=== PATIENT | male | born 1950 ===

== ENCOUNTER 2017-01-16 14:43 | Emergency (ER) | payer MEDICARE, OTHER ==
[2017-01-16 14:47] VITALS: BP 168/91; PULSE 56; RESP 20; TEMP 98.4; O2SAT 99
[2017-01-16 14:48] VITALS: BMI 25.4
[2017-01-16 16:07] LABS: BASO # 0.1 K/uL (0.0-0.2); BASO % 0.9 % (0.0-2.0); EOS # 0.9 K/uL (0.0-0.7); EOS % 13.1 % (0.0-4.0); HEMATOCRIT 42.9 % (35.0-51.0); LYMPH # 1.9 K/uL (1.0-4.3); LYMPH % 27.8 % (20.0-40.0); MEAN CELL VOLUME 90.2 fl (80.0-94.0); MEAN CORPUSCULAR HEMOGLOBIN 31.3 pg (27.0-31.0); MEAN CORPUSCULAR HGB CONC 34.8 g/dL (33.0-37.0); MEAN PLATELET VOLUME 8.6 fl (7.2-11.7); MONO # 0.6 K/uL (0.0-0.8); MONO % 8.4 % (0.0-10.0); NEUT # 3.4 K/uL (1.8-7.0); NEUT % 49.8 % (50.0-75.0); NRBC % 0.1 % (0.0-0.0); RED CELL DISTRIBUTION WIDTH 13.4 % (11.5-14.5); WHITE BLOOD COUNT 6.8 K/uL (4.8-10.8)
[2017-01-16 16:11] LABS: RBC URINE 2 /hpf (0-3); URINE BILIRUBIN NEGATIVE (NEGATIVE); URINE BLOOD NEGATIVE (NEGATIVE); URINE COLOR STRAW (YELLOW); URINE GLUCOSE (UA) NEG (Normal); URINE KETONE NEGATIVE (NEGATIVE); URINE LEUKOCYTE ESTERASE NEG Leu/uL (Negative); URINE PROTEIN NEGATIVE (NEGATIVE); URINE UROBILINOGEN 0.2-1.0 mg/dL (0.2-1.0); WBC URINE 1 /hpf (0-5)
[2017-01-16 16:30] LABS: ALB/GLOB RATIO 1.1 (1.0-2.1); ALCOHOL SERUM < 10 mg/dl (0-10); ALKALINE PHOSPHATASE 94 U/L (38-126); ALT/SGPT 40 U/L (21-72); AST/SGOT 31 U/L (17-59); BILIRUBIN,TOTAL 0.3 mg/dl (0.2-1.3); BLOOD UREA NITROGEN 11 mg/dl (9-20); CALCIUM 9.5 mg/dL (8.4-10.2); CARBON DIOXIDE 29 mmol/L (22-30); CHLORIDE 99 mmol/L (98-107); GFR AFRICAN-AMERICAN > 60; GLUCOSE,RANDOM 120 mg/dL (75-110); POTASSIUM 4.2 MMOL/L (3.6-5.0); SODIUM 140 mmol/l (132-148); TOTAL PROTEIN 8.5 G/DL (6.3-8.2)
--- NOTE | 2017-01-16 16:46 | ED PDOC ---
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 Patient states for the past 3 months , he has had intermittent headache which he attributes to a fall sustained 3 months ago. He denies any loss of consciousness at the time of fall. Patent states he had his back evaluated but not his head. Patient was visiting his PCP Dr. Douglas earlier today, who advised him to come to the ED for evaluation; patient reports suicidal ideation but denies any plan. He denies any chest pain , fevers, abdominal pain, visual changes, sudden onset headaches. He offers no medical complaints. Past Medical History Reviewed: Historical Data, Nursing Documentation, Vital Signs Vital Signs: Last Vital Signs Temp 98.4 F 01/16/17 14:46 Pulse 56 L 01/16/17 14:46 Resp 20 01/16/17 14:46 BP 168/91 H 01/16/17 14:46 Pulse Ox 99 01/16/17 14:46 - Medical History PMH: Cardia Arrhythmia (TACHYCARDIA), HTN, Hypercholesterolemia, TIA (NOVEMBER 2014) - Surgical History Surgical History: No Surg Hx - Family History Family History: States: No Known Family Hx - Home Medications Home Medications: Ambulatory Orders Medication Instructions Recorded Acetaminophen with Codeine 1 tab PO Q4H PRN 09/29/16 [Tylenol with Codeine #3 Tablet] Aspirin [Ecotrin] 1 tab PO DAILY 09/29/16 Atorvastatin [Lipitor] 1 tab PO HS 09/29/16 Cephalexin [Keflex] 1 cap PO QID 09/29/16 Donepezil HCl [Aricept] 1 tab PO HS 09/29/16 hydroCHLOROthiazide [Hydrodiuril] 1 tab PO DAILY 09/29/16 Metoclopramide [Reglan] 10 mg PO Q8 PRN #15 tab 01/16/17 - Allergies Allergies/Adverse Reactions: Allergies Allergy/AdvReac Type Severity Reaction Status Date / Time No Known Allergies Allergy Verified 09/26/16 10:44 Review of Systems ROS Statement: Except As Marked, All Systems Reviewed And Found Negative Constitutional: Negative for: Fever Eyes: Negative for: Vision Change Cardiovascular: Negative for: Chest Pain Gastrointestinal: Negative for: Abdominal Pain Neurological: Negative for: Headache Psych: Positive for: Suicidal ideation Physical Exam - Reviewed Nursing Documentation Reviewed: Yes Vital Signs Reviewed: Yes - Physical Exam Appears: Positive for: Non-toxic Head Exam: Positive for: ATRAUMATIC, NORMAL INSPECTION, NORMOCEPHALIC Skin: Positive for: Warm, Dry Eye Exam: Positive for: Normal appearance ENT: Positive for: Normal ENT Inspection Neck: Positive for: Supple Cardiovascular/Chest: Positive for: Regular Rate, Rhythm Respiratory: Positive for: Normal Breath Sounds. Negative for: Respiratory Distress Gastrointestinal/Abdominal: Positive for: Soft. Negative for: Tenderness Back: Positive for: Normal Inspection Extremity: Positive for: Normal ROM Neurologic/Psych: Positive for: Alert, Oriented, Mood/Affect (calm, cooperative) . Negative for: Motor/Sensory Deficits, Aphasia, Facial Droop - Laboratory Results Result Diagrams: 01/16/17 15:55 01/16/17 15:55 - ECG O2 Sat by Pulse Oximetry: 99 (RA) Pulse Ox Interpretation: Normal - Progress ED Course And Treament: CT head w/o contrast: no ICH Pt. evaluated by crisis and cleared pt. for discharge. Re-evaluation Time: 19:00 (Pt. reports no headache. Denies SI/HI. ) Medical Decision Making Medical Decision Making: Time: 1531 Impression: Crisis evaluation Plan: -- CT Head -- EKG -- Crisis evaluation Reassess Time: 1755 Patient seen and evaluated by crisis team. Patient stable for d/c home as stated b Dr. Issa. Patient given instructions to follow up as an outpatient at the mental health clinic. Scribe Attestation: Documented by Sherri Power acting as a scribe for EVA Gaffney Provider Attestation: All medical record entries made by the Scribe were at my direction and personally dictated by me. I have reviewed the chart and agree that the record accurately reflects my personal performance of the history, physical exam, medical decision making, and the department course for this patient. I have also personally directed, reviewed, and agree with the discharge instructions and disposition. Disposition - Clinical Impression Clinical Impression: Headache, Depression - Patient ED Disposition Is Patient to be Admitted: No Counseled Patient/Family Regarding: Studies Performed, Diagnosis, Need For Followup - Disposition Disposition: Routine/Home Disposition Time: 17:56 Condition: IMPROVED Prescriptions: Metoclopramide [Reglan] 10 mg PO Q8 PRN #15 tab PRN Reason: Headache Instructions: Depression (ED), Acute Headache (ED) Forms: [employer] (Cuban) Print Language: SLOVENIAN
--- NOTE | 2017-01-16 17:06 | CT ---
PROCEDURE: CT scan of the brain dated 01/16/2017 HISTORY: The tip headache. COMPARISON: No prior study available comparison TECHNIQUE: Axial computed tomography images were obtained through the head/brain without intravenous contrast. Radiation dose: Total exam DLP = 840.09 mGy-cm. This CT exam was performed using one or more of the following dose reduction techniques: Automated exposure control, adjustment of the mA and/or kV according to patient size, and/or use of iterative reconstruction technique. FINDINGS: HEMORRHAGE: No acute parenchymal, subarachnoid or extra-axial hemorrhage. BRAIN: Mild moderate move chronic periventricular white matter ischemic changes seen extending peripherally into the deep and subcortical white matter both cerebral hemispheres Mild generalized volume loss VENTRICLES: No obstructive hydrocephalus CALVARIUM: Unremarkable. PARANASAL SINUSES: Unremarkable as visualized. No significant inflammatory changes. MASTOID AIR CELLS: There is sclerosis and under - pneumatization of the right mastoid air complex which is also subtotally opacified OTHER FINDINGS: Changes of bilateral cataract surgery IMPRESSION: No acute intracranial hemorrhage. Mild moderate chronic white matter ischemic changes. Sclerosis and under - pneumatization of the right mastoid air complex which is also subtotally opacified
--- NOTE | 2017-01-17 06:35 | CARD ---
APPROVED REPORT EKG Measurement Heart [id number] VT 140P-4 [id number] <Conclusion> Sinus bradycardia Right bundle branch block Left anterior fascicular block Bifascicular block Voltage criteria for left ventricular hypertrophy Cannot rule out Septal infarct, age undetermined Abnormal ECG
== END 2017-01-16 19:07 | disposition home or self-care (01) ==
LOC: H.ER 14:43
DX: R51 Headache (principal); F32.9 Major depressive disorder, single episode, unspecified; E78.00 Pure hypercholesterolemia, unspecified; I11.9 Hypertensive heart disease without heart failure; I51.7 Cardiomegaly; Z79.82 Long term (current) use of aspirin; Z86.73 Personal history of transient ischemic attack (TIA), and cerebral infarction without residual deficits
CPT/HCPCS: 70450; 80053; 81003; 85025; 93005; 99283; G0480

== ENCOUNTER 2017-03-05 08:19 | Day surgery (SDC) | payer MEDICARE ==
[2017-03-05] MEDS ORDERED: Lidocaine 2% MPF (5 ml) Inj ONE ×2 (08:40→11:10)
[2017-03-05] MEDS ORDERED: Propofol 10 mg/ml Inj (20 ML) ONE ×2 (08:40→11:09)
[2017-03-05] MEDS ORDERED: Lactated Ringer's 1,000 ML IV ONE (08:44)
[2017-03-05 09:01] VITALS: TEMP 96.9
[2017-03-05 11:57] VITALS: BP 132/79; PULSE 89; RESP 18; O2SAT 100
== END 2017-03-05 11:58 | disposition home or self-care (01) ==
LOC: H.ENDO 08:19
PROVIDERS: ATTEND Internal Medicine Gastroenterology
DX: Z12.11 Encounter for screening for malignant neoplasm of colon (principal); F41.9 Anxiety disorder, unspecified; I10 Essential (primary) hypertension; K57.30 Diverticulosis of large intestine without perforation or abscess without bleeding; K64.9 Unspecified hemorrhoids; R10.13 Epigastric pain; K31.89 Other diseases of stomach and duodenum; K29.70 Gastritis, unspecified, without bleeding
CPT/HCPCS: 43239; 88305; G0121; J2704; J3010; J7120